=== PATIENT | male | born 1940 | race Two or more races ===

== ENCOUNTER 2023-05-05 09:21 | Emergency (ER) | payer OTHER ==
[~2023-05-05] VITALS: Ht 170.2 cm; Wt 83.9 kg
[2023-05-05] MEDS ORDERED: MONTELUKAST SOD10 MG PO (10:02)
[2023-05-05] MEDS ORDERED: LANTUS SOL100 UNIT/1 SUBCUTANEO (10:03)
[2023-05-05] MEDS ORDERED: TENORMIN25 MG PO (10:03)
[2023-05-05] MEDS ORDERED: MICARDIS20 MG PO (10:03)
[2023-05-05] MEDS ORDERED: OMEPRAZOLE-BIC1 EAC1 PO (10:04)
[2023-05-05] MEDS ORDERED: AZITHROMYCIN 500 MG TABLET PO ONE (10:15)
[2023-05-05] MEDS ORDERED: LEVALBUTEROL HCL 1.25 MG/3 ML SOLUTION IH SCH (10:15)
[2023-05-05] MEDS ORDERED: GENTAMICIN SULFATE 0.15 MG/DR DROPS 5ML OP ONE (10:15)
[2023-05-05] MEDS ORDERED: GUAIFENESIN/DEXTROMETHORPHAN 100 MG/5 ML ML PO ONE (10:15)
[2023-05-05 11:10] LABS: HEMATOCRIT 39.7 % (39.0-48.0); HEMOGLOBIN 13.1 g/dL (13-16.00); MEAN CELL VOLUME 86.7 fL (80.0-100.00); MEAN CORPUSCULAR HEMOGLOBIN 28.5 pg (27.00-32.0); MEAN CORPUSCULAR HGB CONC 32.9 g/dl (32.0-36.0); PLATELET COUNT 221 K/uL (150-450); RED BLOOD COUNT 4.58 M/uL (4.00-6.00); RED CELL DISTRIBUTION WIDTH 13.3 % (11.5-14.5)
[2023-05-05] MEDS ORDERED: TUSNEL LIQUID178 ML PO (11:35)
[2023-05-05] MEDS ORDERED: ZITHROMAX500 MG PO (11:35)
[2023-05-05 11:36] LABS: ALBUMIN 2.9 gm/dL (3.4-5.0); BILIRUBIN TOTAL 0.91 mg/dL (0.3-1.2); CALCIUM 9.4 mg/dL (8.5-10.1); CREATININE SERUM 1.49 mg/dL (0.70-1.30); GFR 45.26; GLOBULINA 4.7 G/DL (2.4-3.5); POTASSIUM 4.82 mEq/L (3.5-5.1); TOTAL PROTEIN 7.6 gm/dL (6.4-8.2)
[2023-05-05] MEDS ORDERED: XOPENEX CO1.25 MG/0. IH (11:37)
[2023-05-05 11:50] LABS: URINE APPEARANCE Clear; URINE BILIRRUBIN Negative (NEGATIVE); URINE BLOOD Negative; URINE COLOR Yellow; URINE LEUKOCYTE Negative; URINE NITRATE Negative; URINE PROTEIN Negative (NEGATIVE); URINE UROBILINOGEN 0.2 E.U./dl
[2023-05-05 11:53] LABS: URINE BACTERIA 12.5 uL (0.0-1933); URINE EPITHELIAL CELLS 3.8 uL (0.0-38.8)
[2023-05-05 11:54] LABS: URINE GLUCOSE >=1000 MG/DL (NEGATIVE); URINE RBC 0.4 uL (0.0-20.8)
== END 2023-05-05 12:15 | disposition home or self-care (01) ==
LOC: ER 09:22
PROVIDERS: General Practice
DX: J06.9 Acute upper respiratory infection, unspecified (principal); E11.9 Type 2 diabetes mellitus without complications; Z79.4 Long term (current) use of insulin; I10 Essential (primary) hypertension; Z20.822 Contact with and (suspected) exposure to COVID-19

== ENCOUNTER → 2023-11-12 09:49 | Outpatient (CLI) | payer OTHER ==
[~2023-11-12 09:49] MED LIST: LANTUS SOL100 UNIT/1 SUBCUTANEO; MICARDIS20 MG PO; MONTELUKAST SOD10 MG PO; OMEPRAZOLE-BIC1 EAC1 PO; TENORMIN25 MG PO; TUSNEL LIQUID178 ML PO; XOPENEX CO1.25 MG/0. IH; ZITHROMAX500 MG PO
== END | disposition home or self-care (01) ==
LOC: NUCLEAR 09:49
PROVIDERS: ATTEND Psychiatry & Neurology Clinical Neurophysiology
DX: F03.90 Unspecified dementia, unspecified severity, without behavioral disturbance, psychotic disturbance, mood disturbance, and anxiety (principal)
CPT/HCPCS: 78803; A9557